=== PATIENT | female | born 1990 ===

== ENCOUNTER → 2017-05-26 | Outpatient (CLI) | payer OTHER ==
--- NOTE | 2017-05-27 08:18 | US ---
EXAMINATION TYPE: US OB <= 14 wk fetus DATE OF EXAM: 05/26/2017 COMPARISON: NONE CLINICAL HISTORY: 26-year-old female Z36 Confirm dates. cramping Date of LMP: 03/30/2017 Beta HcG (if available): not available EXAM PERFORMED: OBTA FINDINGS: EXAM MEASUREMENTS: GESTATIONAL AGE / DATING Physician Established: not established Dates by LMP: (8 weeks/1 days) EDC: 01/04/2018 Dates by First Scan: [employer]OR Dates by Current Scan for: (7 weeks/1 days +/- 5 days) EDC: 01/11/2018 MATERNAL ANATOMY Uterus: 11.0 x 7.7 x 6.6cm Right Ovary: 3.7 x 2.2 x 2.3cm Left Ovary: 2.8 x 2.3 x 1.6cm Post CDS / Adnexa: wnl Presence of free fluid: no Presence of corpus luteal cyst: yes, right = 2.1cm Presence of subchorionic bleed: no GESTATION / SURVEY CRL: 1.0 (7 weeks/1 days) MSD: wnl Yolk Sac (normal less than 6mm): 0.2cm Heart Rate: 125 bpm Rhythm: Normal IUP: Viable IUP IMPRESSION: 1. Single live intrauterine with estimated gestational age of 8 weeks 1 day by LMP. Current ultrasound biometry is smaller and discordant (7 weeks 1 day) probably on the basis of inaccurate re call of LMP. Clinically correlate. 2. Complete survey recommended 18-20 weeks.
== END | disposition home or self-care (01) ==
LOC: RADUSWWP 16:26
PROVIDERS: ATTEND Obstetrics & Gynecology
DX: O34.81 Maternal care for other abnormalities of pelvic organs, first trimester (principal); Z3A.01 Less than 8 weeks gestation of pregnancy
CPT/HCPCS: 76801

== ENCOUNTER → 2017-06-26 | Outpatient (CLI) | payer OTHER ==
[2017-06-26 16:57] LABS: CH 29.2; HCT 35.3 % (34.0-46.0); HDW 2.39; HGB 11.9 gm/dL (11.4-16.0); MCH 29.1 pg (25.0-35.0); MCHC 33.7 g/dL (31.0-37.0); MCV 86.3 fL (80.0-100.0); Mean Platelet Volume 8.5; RBC 4.09 m/uL (3.80-5.40); RDW 13.6 % (11.5-15.5); WBC 12.3 k/uL (3.8-10.6)
[2017-06-26 17:11] LABS: Glucose 123 mg/dL (74-99); Non-African American GFR(MDRD) >60 (>60 ml/min/1.73 sqM)
[2017-06-27 01:30] LABS: Treponemal Ab Non-Reactive (Non-Reactive)
[2017-06-27 04:46] LABS: Toxoplasma Antibody (IgG) <3.0 IU/mL (<7.2)
== END | disposition home or self-care (01) ==
LOC: LABWHC1 16:15
PROVIDERS: ATTEND Obstetrics & Gynecology
DX: O26.811 Pregnancy related exhaustion and fatigue, first trimester (principal)
CPT/HCPCS: 36415; 82565; 82947; 85027; 86762; 86777; 86778; 86780; 86850; 86900; 86901; 87340; 87390

== ENCOUNTER 2017-12-16 13:28 | Outpatient (CLI) | payer OTHER ==
[2017-12-16 14:51] VITALS: BP 123/71; PULSE 93; RESP 16; TEMP 97.7
--- NOTE | 2017-12-17 11:29 | P.MSEPDOC ---
Presenting Problems - Arrival Data Date of Arrival on Unit: 12/16/17 Time of Arrival on Unit: 13:43 Mode of Transport: Ambulatory - Complaint OB-Reason for Admission/Chief Complaint: Possible Onset of Labor Medical History - Information : 4 Para: 3 Term: 3 : 0 Abortions: Spontaneous or Elective: 0 Number of Living Children: 3 - Gestational Age Gestational Age by JOSÉ MIGUEL (wks/days): 36 Weeks and 2 Days Review of Systems - Review of Systems Constitutional: No problems Breast: No problems ENT: No problems Cardiovascular: No problems Respiratory: No problems Gastrointestinal: No problems Genitourinary: No problems Musculoskeletal: No problems Neurological: No problems Skin: No problems Vital Signs - Temperature Temperature: 97.7 F Temperature Source: Tympanic - Pulse Right Radial Pulse Rate: 93 Pulse Assessment Method: Automatic Cuff - Respirations Respiratory Rate: 16 Oxygen Delivery Method: Room Air O2 Sat by Pulse Oximetry: 97 - Blood Pressure Right Arm Blood Pressure: 123/71 Blood Pressure Mean: 88 Blood Pressure Source: Automatic Cuff Medical Screen Scoring (Pre) - Cervical Exam Dilation: 1-3 cm = 1 Effacement: Exam Deferred Membranes: Intact - Uterine Contractions Frequency: N/A Duration: N/A Intensity: N/A - Maternal Vital Signs Maternal Temperature: N/A Maternal Blood Pressure: N/A Signs of Preeclampsia: N/A Maternal Respirations: N/A - Pain Assessment Pain Location and Character: Abdomen, Hip Pain Scale Used: Numeric (1 - 10) Pain Intensity: 5 Pain Description: Cramping, Sharp Pain Frequency: Intermittent Pain Behavior: Vocalization Pain Aggravating Factors: Activity, Position - Maternal Trauma Maternal Trauma: N/A - Assessment Heart Rate - NICHD Category: Category I (Normal) = 0 NST: Reactive Position: N/A - Total Score Total Score (Pre): 1 - Level of Risk Level of Risk: Low (0-5) Physician Notification (Pre) - Physician Notified Physician Notified Date: 12/16/17 Physician Notified Time: 14:30 Physician/Practitioner Notifed:: grant Spoke With: grant New Order Received: Yes Disposition - Disposition OB Disposition: Triage, Discharge to home Discharge Date: 12/16/17 Discharge Time: 15:10 I agree with the RN Medical Screening Exam: Yes Risk & Benefit of care provided described in d/c instruction: Yes Diagnosis: FALSE LABOR BEFORE 37 COMPLETED WEEKS OF GEST, THIRD TRI
== END 2017-12-16 15:10 | disposition home or self-care (01) ==
LOC: FBPOP 13:28
PROVIDERS: ATTEND Obstetrics & Gynecology
DX: O47.03 False labor before 37 completed weeks of gestation, third trimester (principal); Z3A.36 36 weeks gestation of pregnancy
CPT/HCPCS: 59025; 84112; G0463; 99213

== ENCOUNTER 2018-01-04 06:00 | Inpatient (IN) | payer OTHER ==
[2018-01-04] MEDS ORDERED: CARBOPROST TROMETHAMINE 250 MCG/ML 1 ML AMP IM PRN (06:38)
[2018-01-04] MEDS ORDERED: METHYLERGONOVINE 0.2 MG/ML 1 ML AMP IM PRN (06:38)
[2018-01-04] MEDS ORDERED: LIDOCAINE 1% (PF) 10 MG/ML (30 ML SDV) SQ PRN (06:38)
[2018-01-04] MEDS ORDERED: OXYTOCIN 20 UNITS/1000 ML NS 1,000 ML IV SCH ×2 (06:38→13:45)
[2018-01-04] MEDS ORDERED: OXYTOCIN 10 UNIT/ML 1 ML VIAL IM PRN (06:38)
[2018-01-04] MEDS ORDERED: TERBUTALINE 1 MG/ML VIAL SQ PRN (06:38)
[2018-01-04 06:43] VITALS: BMI 38.6
[2018-01-04] MEDS: LACTATED RINGERS 1,000 ML IV SCH ×2 (06:55→11:24)
[2018-01-04 07:07] LABS: Basophils # (A) 0.1 k/uL (0-0.2); Basophils % (A) 1 %; Eosinophils # (A) 0.3 k/uL (0-0.7); Eosinophils % (A) 2 %; HCT 33.5 % (34.0-46.0); HGB 11.2 gm/dL (11.4-16.0); Lymphocytes # (A) 3.6 k/uL (1.0-4.8); Lymphocytes % (A) 25 %; MCH 29.3 pg (25.0-35.0); MCHC 33.6 g/dL (31.0-37.0); MCV 87.2 fL (80.0-100.0); Mean Platelet Volume 8.7; Monocytes # (A) 0.8 k/uL (0-1.0); Monocytes % (A) 6 %; Neutrophils # (A) 9.2 k/uL (1.3-7.7); Neutrophils % (A) 65 %; Platelet Count 189 k/uL (150-450); RBC 3.84 m/uL (3.80-5.40); RDW 13.4 % (11.5-15.5); WBC 14.2 k/uL (3.8-10.6)
[2018-01-04] MEDS ORDERED: SODIUM CHLORIDE 0.9% 100 ML BAG ONE (11:00)
[2018-01-04] MEDS ORDERED: BUPIVACAINE (PF) 0.25% 30 ML VIAL ONE (11:00)
[2018-01-04] MEDS ORDERED: fentaNYL (PF) 50 MCG/ML 5 ML AMP ONE (11:00)
[2018-01-04] MEDS ORDERED: SIMETHICONE 80 MG CHEWABLE PO PRN (13:42)
[2018-01-04] MEDS ORDERED: BENZOCAINE/MENTHOL SPRAY 1 GM/SPRAY AEROSOL TOPICAL PRN (13:42)
[2018-01-04] MEDS ORDERED: ZOLPIDEM 5 MG TAB PO PRN (13:42)
[2018-01-04] MEDS ORDERED: HYDROCORTISONE 2.5% RECTAL CREAM 30 GM TUBE RECTAL PRN (13:42)
[2018-01-04] MEDS ORDERED: WITCH HAZEL 1 EACH MED..PAD TOPICAL PRN (13:42)
[2018-01-04] MEDS ORDERED: diphenhydrAMINE 25 MG CAP PO PRN (13:42)
[2018-01-04] MEDS ORDERED: diphenhydrAMINE 50 MG/ML 1 ML VIAL IVP PRN ×2 (13:42)
[2018-01-04] MEDS ORDERED: diphenhydrAMINE 50 MG CAP PO PRN (13:42)
[2018-01-04] MEDS ORDERED: ACETAMINOPHEN TAB 325 MG TAB PO PRN (13:42)
[2018-01-04] MEDS ORDERED: LANOLIN CREAM 5 GM TUBE TOPICAL PRN (13:42)
[2018-01-04] MEDS: SENNOSIDES-DOCUSATE SODIUM 1 EACH TAB PO SCH (21:25)
[2018-01-04] MEDS: IBUPROFEN 600 MG TAB PO PRN (21:26)
[2018-01-05] MEDS: IBUPROFEN 600 MG TAB PO PRN ×3 (07:48→23:52)
--- NOTE | 2018-01-05 07:59 | P.HPOB ---
History of Present Illness H&P Date: 01/04/18 Chief Complaint: Induction of labor 27-year-old presents at 39 weeks for induction of labor. Her cervix is 3 cm dilated, 60% effaced, and -2 station. She is not oriana. heart tones 130-135 with moderate variability and reactive. Review of Systems All systems: negative Constitutional: Denies chills, Denies fever Eyes: denies blurred vision, denies pain Ears, nose, mouth and throat: Denies headache, Denies sore throat Cardiovascular: Denies chest pain, Denies shortness of breath Respiratory: Denies cough Gastrointestinal: Denies abdominal pain, Denies diarrhea, Denies nausea, Denies vomiting Genitourinary: Denies dysuria, Denies hematuria Musculoskeletal: Denies myalgias Integumentary: Denies pruritus, Denies rash Neurological: Denies numbness, Denies weakness Psychiatric: Denies anxiety, Denies depression Endocrine: Denies fatigue, Denies weight change Past Medical History Past Medical History: Asthma Additional Past Medical History / Comment(s): Obstetric history: She's had 3 previous vaginal deliveries. This is her fourth . She's had care with me since 11 weeks gestation. Blood type is A+, and weighs negative, rubella immune, treponema antibody negative, hepatitis B negative, toxoplasmosis negative. Normal 1 hour glucose tolerance test. GBS negative. History of Any Multi-Drug Resistant Organisms: None Reported Past Surgical History: No Surgical Hx Reported Past Anesthesia/Blood Transfusion Reactions: No Reported Reaction Past Psychological History: Anxiety, Depression Smoking Status: Current every day smoker Past Alcohol Use History: None Reported Past Drug Use History: None Reported - Past Family History Father Family Medical History: Hypertension Medications and Allergies Home Medications Medication Instructions Recorded Confirmed Type Pnv No.95/Ferrous Fum/Folic AC 1 each PO DAILY 09/25/17 01/04/18 History [ Multivitamin Tablet] Allergies Allergy/AdvReac Type Severity Reaction Status Date / Time No Known Allergies Allergy Verified 01/04/18 06:38 Exam Osteopathic Statement: *. No significant issues noted on an osteopathic structural exam other than those noted in the History and Physical/Consult. - Vital Signs Vital signs: Vital Signs Temp Pulse Resp BP Pulse Ox 01/05/18 00:00 98.2 F 56 L 16 116/65 01/04/18 20:00 98.1 F 75 16 117/71 01/04/18 16:00 98.0 F 73 16 134/63 98 01/04/18 15:43 98.2 F 73 16 134/63 01/04/18 15:13 98.0 F 76 18 134/66 98 01/04/18 14:43 96.8 F L 70 18 117/59 01/04/18 14:28 82 16 126/63 01/04/18 14:13 84 17 126/65 01/04/18 13:58 78 18 136/62 01/04/18 13:43 96.8 F L 85 19 134/64 100 Intake and Output 01/04/18 01/05/18 01/05/18 22:59 06:59 14:59 Other: # Voids 1 1 # Bowel Movements 0 Heart: Regular rate and rhythm Lungs: Clear to auscultation bilaterally Abdomen: Soft, nontender Extremities: Negative Homans sign Results Result Diagrams: 01/04/18 06:55 Assessment and Plan (1) Normal labor Current Visit: Yes Status: Acute Code(s): O80 - ENCOUNTER FOR FULL-TERM UNCOMPLICATED DELIVERY; Z37.9 - OUTCOME OF DELIVERY, UNSPECIFIED SNOMED Code(s ): 99179630 Plan: 1. Induction with amniotomy and Pitocin 2. Anticipate normal vaginal delivery
--- NOTE | 2018-01-05 08:46 | P.PROBDLV ---
Vaginal Delivery Note - . Vaginal Delivery Note: 27-year-old presented at 39 weeks for induction of labor. Her cervix was 3 cm dilated, 60% effaced, and -2 station. She was not oriana and heart tones were 130-135 with moderate variability and reactive. Amniotomy was performed at 7:07 AM clear fluid noted and Pitocin was also started. When she was uncomfortable she did get an epidural. Her cervix was completely dilated at 1323. She pushed and delivered a viable male infant over intact perineum under epidural anesthesia at 1333. Head delivered OA, anterior shoulder delivered gentle downward traction followed by posterior shoulder and rest of body. Nose and mouth bulb suctioned, cord clamped and cut, placed on mother's abdomen. Apgars 8, 9, weight 7 lbs. 11 oz. Placenta delivered spontaneously, intact with three-vessel cord at 1335. Vagina, cervix, and perineum were inspected. No lacerations noted. Estimated blood loss 200 mL. Mother and baby in stable condition.
--- NOTE | 2018-01-05 08:47 | P.DS ---
Providers Date of admission: 01/04/18 06:28 Expected date of discharge: 01/05/18 Attending physician: Gabriella Rangel Primary care physician: Stated None - Discharge Diagnosis(es) (1) Normal labor Current Visit: Yes Status: Resolved (2) Normal vaginal delivery Current Visit: Yes Status: Acute Hospital Course: Patient presented for induction of labor. She underwent a normal vaginal delivery. Her course was uncomplicated. She'll be discharged home day #1 in stable condition to follow-up with me in 6 weeks. Plan - Discharge Summary New Discharge Prescriptions: New Ibuprofen [Motrin] 600 mg PO Q6HR PRN #30 tab PRN Reason: Mild Pain Or Fever >= 100.5 No Action Pnv No.95/Ferrous Fum/Folic AC [ Multivitamin Tablet] 1 each PO DAILY Discharge Medication List Pnv No.95/Ferrous Fum/Folic AC [ Multivitamin Tablet] 1 each PO DAILY [History] Ibuprofen [Motrin] 600 mg PO Q6HR PRN #30 tab 01/05/18 [Rx] Follow up Appointment(s)/Referral(s): aGbriella Rangel DO [Doctor of Osteopathic Medicine] - 6 Weeks Discharge Disposition: HOME SELF-CARE
[2018-01-05] MEDS: SENNOSIDES-DOCUSATE SODIUM 1 EACH TAB PO SCH ×2 (09:21→21:59)
--- NOTE | 2018-01-06 07:04 | P.PNOBGVD ---
Subjective - Subjective Patient reports: Reports appetite normal, Reports voiding normally, Reports pain well controlled, Reports ambulating normally : doing well Objective - Latest Vital Signs Latest vital signs: Vital Signs Temp Pulse Resp BP Pulse Ox 01/06/18 00:00 98.1 F 81 16 120/83 98 01/05/18 15:57 98.4 F 82 16 114/83 01/05/18 12:00 98.2 F 17 121/74 01/05/18 08:00 98.2 F 96 16 116/66 100 - Exam Lungs: bilateral: normal Chest: Normal S1, Normal S2 Extremities: Present: normal Abdomen: Present: normal appearance, soft Uterus: Present: normal, firm Assessment and Plan Assessment: Post day #2. Patient was discharged yesterday but elected to stay because her baby was not discharged home. She continues to well without complaints. Vital signs are stable and she is afebrile. Uterus is firm nontender she's having normal lochia. Plan today is to continue routine care discharge home. (1) Normal vaginal delivery Current Visit: Yes Status: Acute Code(s): O80 - ENCOUNTER FOR FULL-TERM UNCOMPLICATED DELIVERY SNOMED Code(s): 50066416
[2018-01-06 08:45] VITALS: BP 125/70; PULSE 93; RESP 18; TEMP 98.6
[2018-01-06] MEDS: SENNOSIDES-DOCUSATE SODIUM 1 EACH TAB PO SCH (08:47)
== END 2018-01-06 14:31 | disposition home or self-care (01) | DRG 775 ==
LOC: 4FBP 06:28
PROVIDERS: ADMIT Obstetrics & Gynecology; ATTEND Obstetrics & Gynecology
PROC: 10E0XZZ Delivery of Products of Conception, External Approach (ICD-10-PCS; principal; 2018-01-05)
PROC: 3E033VJ Introduction of Other Hormone into Peripheral Vein, Percutaneous Approach (ICD-10-PCS; 2018-01-05)
PROC: 10907ZC Drainage of Amniotic Fluid, Therapeutic from Products of Conception, Via Natural or Artificial Opening (ICD-10-PCS; 2018-01-05)
DX: O99.334 Smoking (tobacco) complicating childbirth (principal); O99.344 Other mental disorders complicating childbirth; F17.200 Nicotine dependence, unspecified, uncomplicated; Z37.0 Single live birth; F32.9 Major depressive disorder, single episode, unspecified; F41.9 Anxiety disorder, unspecified; O99.52 Diseases of the respiratory system complicating childbirth; J45.909 Unspecified asthma, uncomplicated; Z3A.39 39 weeks gestation of pregnancy; Z82.49 Family history of ischemic heart disease and other diseases of the circulatory system
CPT/HCPCS: 85025; 88307